=== PATIENT | female | born 2000 | race African-American/Black ===

== ENCOUNTER 2022-01-15 19:16 | Outpatient (CLI) | payer SELFPAY ==
[~2022-01-15] VITALS: Ht 175.3 cm; Wt 104.5 kg
--- NOTE | 2022-01-15 19:20 | NUR ---
1920- PT PRESENTS TO [facility] AMBULATORY COMPLAINING OF VAGINAL PAIN AND CRAMPING. TO ROOM LR4, CHANGED INTO GOWN. 193- HEART TONES DOPPLERED AT 150 WITH LOTS OF MOVEMENT NOTED. VSS. PLAN OF CARE DISCUSSED WITH PT. SHE COMPLAINS OF VAGINAL PAIN THAT HAS BEEN CONSTANT FOR MOST OF THE DAY AND SOME CRAMPIING. DENIES LEAKING FLUID OR VAGINAL BLEEDING. PT IS FEELING MOVEMENT. PT HAS NOT HAD ANY CARE AND HAS RECENTLY MOVED HERE FROM [place]. 1939- ROLES UPDATED ON PT HISTORY AND PRESENTING COMPLAINT. ORDERS RECEIVED FOR LABS, UA, AND UDS. WILL CALL WITH RESULTS.
[2022-01-15 19:35] VITALS: BP 128/72; PULSE 95; TEMP 98.5
[2022-01-15 20:20] LABS: BASO % 0.3 % (0.0-2.0); EOS # 0.1 K/mm3 (0.0-0.7); EOS % 1.2 % (0.0-4.0); GRAN # 6.2 K/mm3 (1.4-6.5); GRAN % 67.1 % (42.2-75.2); HEMATOCRIT 33.8 % (37.0-47.0); HEMOGLOBIN 11.5 g/dl (12.5-16.0); LYMPH # 2.3 K/mm3 (1.2-3.4); LYMPH % 24.5 % (20.0-51.0); MEAN CELL VOLUME 91 fl (80.0-100.0); MEAN CORPUSCULAR HEMOGLOBIN 31 pg (27-31); MEAN CORPUSCULAR HGB CONC 34 g/dl (33.0-37.0); MEAN PLATELET VOLUME 9.7 fl (7.4-10.4); MONO # 0.6 K/mm3 (0.1-0.6); MONO % 6.5 % (1.7-9.3); PLATELET COUNT 233 K/mm3 (130-400); RED BLOOD COUNT 3.71 M/mm3 (4.10-5.30); REDCELL DISTRIBUTION WIDTH-CV 12.7 % (11.5-14.5)
[2022-01-15 20:44] LABS: COLLECTION METHOD CLEAN CATCH
[2022-01-15 20:53] LABS: MUCOUS Present (NOT PRESENT); PH 6 (5-8); SQUAMOUS EPITHELIAL 20-50 /hpf (0-10); URINE APPEARANCE Cloudy (CLEAR/HAZY); URINE BACTERIA None Seen /hpf (NONE SEEN); URINE BILIRUBIN Negative (NEGATIVE); URINE BLOOD Negative (NEGATIVE); URINE COLOR Yellow (YELLOW); URINE GLUCOSE Negative (NEGATIVE); URINE KETONE Negative (NEGATIVE); URINE LEUKOCYTE ESTERASE 3+ (NEGATIVE); URINE NITRATE Negative (NEGATIVE); URINE PROTEIN(semi-quant) 1+ (NEGATIVE); URINE UROBILINOGEN Negative (NEGATIVE)
--- NOTE | 2022-01-15 21:00 | NUR ---
2099- NURSING ADMISSION HISTORY AND ASSESSMENT COMPLETE. 2119- DR NOTIFIED CHARTED, ORDERS RECEIVED. PT UPDATED ON PLAN OF CARE AND LAB RESULTS.
[2022-01-15 21:12] LABS: HIV 1/2 Antibodies Non-Reactive; HIV-1p24 Antigen Non-Reactive
[2022-01-15 21:12] LABS: TRICYCLIC ANTIDEPRESS URINE NEGATIVE
[2022-01-15] MEDS ORDERED: PRENA1 CHEW1 CT1 PO (21:13)
--- NOTE | 2022-01-15 21:42 | NUR ---
2141- MACROBID GIVEN ORDERED. PT EATING SOME CRACKERS WELL. 2199- DISCHARGE INSTRUCTIONS GIVEN AND PT VERBALIZES UNDERSTANDING. DISCUSSED PRESCRIPTION HAS BEEN CALLED INTO [facility] AND PT NEEDS TO PICK IT UP AND TAKE THE FULL DOSES. 2212- PT DISMISSED TO HOME ACCOMPANIED BY BOYFRIEND AND TODDLER.
[2022-01-15 22:00] VITALS: BP 117/68; PULSE 92
[2022-01-16 18:54] LABS: HEPATITIS B SURFACE ANTIGEN Negative (Negative)
== END 2022-01-15 22:13 | disposition home or self-care (01) ==
LOC: LDR 19:16 → LDRO 19:16 → LDR 19:20 → LDRO 22:13
PROVIDERS: Obstetrics & Gynecology
DX: O26.899 Other specified pregnancy related conditions, unspecified trimester (principal); R10.2 Pelvic and perineal pain; Z3A.00 Weeks of gestation of pregnancy not specified
CPT/HCPCS: OP

== ENCOUNTER 2022-04-23 11:02 | Inpatient (IN) | payer MEDICAID ==
[2022-04-23] VITALS (41 sets, daily range): BP systolic 111–154; BP diastolic 63–98; PULSE 82–114; TEMP 97.2–98
[~2022-04-23] VITALS: Ht 175.3 cm; Wt 120.5 kg
[~2022-04-23 11:02] MED LIST: PRENA1 CHEW1 CT1 PO
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
--- NOTE | 2022-04-23 11:30 | NUR ---
Pit start @ 2mU/min after noting Category I monitor strip.
[2022-04-23 12:16] LABS: BASO % 0.3 % (0.0-2.0); EOS # 0.1 K/mm3 (0.0-0.7); EOS % 0.8 % (0.0-4.0); GRAN % 69.9 % (42.2-75.2); HEMOGLOBIN 11.6 g/dl (12.5-16.0); LYMPH # 1.6 K/mm3 (1.2-3.4); LYMPH % 22.6 % (20.0-51.0); MEAN CELL VOLUME 92 fl (80.0-100.0); MEAN CORPUSCULAR HEMOGLOBIN 31 pg (27-31); MEAN CORPUSCULAR HGB CONC 34 g/dl (33.0-37.0); MONO # 0.4 K/mm3 (0.1-0.6); PLATELET COUNT 269 K/mm3 (130-400); RED BLOOD COUNT 3.77 M/mm3 (4.10-5.30); REDCELL DISTRIBUTION WIDTH-CV 12.6 % (11.5-14.5)
[2022-04-23 12:23] LABS: TRICYCLIC ANTIDEPRESS URINE NEGATIVE
--- NOTE | 2022-04-23 12:30 | NUR ---
Patient informed plans to come break water in 45 minutes or so. Patient agreeable to plan of care. Denies any questions or concerns.
[2022-04-23 12:37] LABS: HEMATOCRIT 34.5 % (37.0-47.0)
--- NOTE | 2022-04-23 13:20 | NUR ---
here. AROM @ 1323, clear fluid noted. SVE /-2 per his exam. Reports cervix now anterior, soft.
--- NOTE | 2022-04-23 14:48 | NUR ---
Requests epidural. Sudeep Patel CRNA, notified of patient request. LR bolus begun.
--- NOTE | 2022-04-23 15:15 | NUR ---
NOHEMI Esteves, here for epidural placement. Time-out completed prior to procedure. 1517: Local anesthetic admininstered by BATH DESIGN SALES CONSULTANT. 1521: Single shot dose administered by BATH DESIGN SALES CONSULTANT. No adverse reactions noted. Tolerates procedure well.
--- NOTE | 2022-04-23 15:45 | NUR ---
Patient notified of positive drug screen for cannabis, and per protocol will collect portion of umbilical cord for analysis, as well as obtain urine sample on . Verbalizes understanding.
--- NOTE | 2022-04-23 16:05 | NUR ---
Parsons catheter placed @ this time in sterile fashion, followed by repeat SVE. Repositioned to right lateral with left leg in stirrup.
--- NOTE | 2022-04-23 16:10 | NUR ---
BP cuff changed to left arm at this time, as noted elevated reading while cuff on right arm with patient in right lateral.
--- NOTE | 2022-04-23 16:42 | NUR ---
here for exam. SVE /-2, gives verbal order to increase pitocin up to 30mU/min.
--- NOTE | 2022-04-23 16:45 | NUR ---
places FSE @ this time.
--- NOTE | 2022-04-23 16:49 | NUR ---
Patient nauseated, emesis of 100mL noted. Fan on, cool washcloth applied. Will administer Zofran.
--- NOTE | 2022-04-23 17:25 | NUR ---
Repositioned to left lateral with right leg in stirrup.
--- NOTE | 2022-04-23 17:49 | NUR ---
Repositioned to sitting upright.
--- NOTE | 2022-04-23 18:23 | NUR ---
Report to ANGELIA Pinon, who will resume care from this point forward.
--- NOTE | 2022-04-23 19:47 | NUR ---
@194 DR. ELLER WAS NOTIFIED REGARDING PT SVE /-2, BLOOD PRESSURE CONCERNS 145/82, 141/84 AND 154/84. SAID WE CAN WATCH B/P AND IF THE B/P GETS INTO THE 160'S GIVE HIM A CALL.
--- NOTE | 2022-04-23 20:38 | NUR ---
@2027 SVE10/100/+3 DR. ELLER NOTIFIED AND STATES "I'M ON MY WAY'.
--- NOTE | 2022-04-23 22:13 | NUR ---
@[address] ELLER OF PT SVE /+3 AND THAT HE IS NEEDED AT THE BEDSIDE FOR DELIVERY. @2038 MD ARRIVED FOR DELIVERY @2043 BABY BOY DELIVERED. @2048 PLACENTA DELIVERED. PITOCIN BOLUSED AFTER PITOCIN AT 333MU/ML CORD SEGMENT COLLECTED AND SENT TO LAB. PLACENTA COLLECTED AND SENT TO LAB. CORD BLOOD COLLECTED AND SENT TO LAB.
--- NOTE | 2022-04-23 23:09 | NUR ---
PATIENT TRANSPORTED TO VIA WHEELCHAIR ALONG WITH SPOUSE. PATIENT UNDERSTAND SHE HAS A HAT IN THE TOLIET TO VOID. PATIENT ORIENTED TO THE UNIT, CALL HYDE LIGHT WITHIN REACH, BED POSITIONED LOW WITH WHEELS LOCKED.
[2022-04-24] VITALS (9 sets, daily range): BP systolic 118–152; BP diastolic 56–110; PULSE 68–95; TEMP 97.6–98
--- NOTE | 2022-04-24 05:35 | NUR ---
PT AND SPOUSE IN THE NURSERY VISITING THE BABY.
--- NOTE | 2022-04-24 06:14 | NUR ---
REPORT GIVEN TO ANGELIA OMALLEY.
--- NOTE | 2022-04-24 14:50 | NUR ---
Harness Installer met with patient in response to consult for positive urine drug screen for cannabinoids. Patient and father of baby, Juanito (ph#[phone]) are agreeable to answer assessment questions. Patient and Juanito live in [place] with their other child, who is age 2 and at daycare at the time of assessment. Patient reports she is from [place], so her family is all out of state however reports Juanito's family is local and supportive. Patient reports she has supplies needed for baby, however only has a pack n play and would like to have SW assistance locating either a bassinet or crib attachment so she doesn't have to bend so far over each time. Patient is agreeable to let SW contact [employer] for assistance with this. Patient states she is signed up with [facility] and called them today to notify them of baby's . Patient is interested in maternal and baby services through the [facility] Department and give SW permission to share her information with [facility] and give referral. Patient states daycare is arranged for both of her children and she plans to try to secure employment after she recovers. Patient denied any mental health concerns and feels she did better during this than her previous one. SW addressed positive UDS and patient stated she last used a couple months ago and plans to bottle feed. Patient reports she found out she was at about four months along and tried to quit, but it made her sick. Patient states her OB is aware of this. RUSSELL provided [facility] Resource Guide, then collaborated with Dr. Dubose about the above information. Dr. Dubose advised patient and baby may need more invasive work up due to patient having an STD during . RUSSELL attempted to contact Chelita at [employer] and Nancy at [facility] and left detailed messages for them both.
--- NOTE | 2022-04-24 17:00 | NUR ---
Dr. Lemons at nurses station and updated that patient blood pressures continue to increase. BP-143/106 and thirty minutes later 152/110. Patient has left unit a few times today and when asked if she is smoking or using anything when she leaves she states "no". Dr. Lemons updated and orders to take another blood pressure 1744 and update if continue to be elevated.
--- NOTE | 2022-04-24 19:34 | NUR ---
@1810 RN AT THE BEDSIDE FOR REPORT. PT [id number] WITH NO APPARENT SIGN OF DISTRESS. PATIENT DENIES HEACHACHES, DIZZINESS AND OR BLURRY VISION.
--- NOTE | 2022-04-24 21:50 | NUR ---
Pt. observed walking off the unit with spouse and two year old transporting their two year old to a relative.
--- NOTE | 2022-04-24 23:10 | NUR ---
Patient observe arriving back to the unit with spouse and with no apparent sign of distress.
--- NOTE | 2022-04-25 00:16 | NUR ---
Patient observed bottle feeding .
[2022-04-25 04:29] VITALS: BP 126/84; PULSE 80; TEMP 97.6
[2022-04-25 08:36] VITALS: BP 143/94; PULSE 86; TEMP 97.4
--- NOTE | 2022-04-25 08:37 | NUR ---
Manufacturing Storeperson spoke with Nancy at the [facility] who will reach out to patient to enroll her in services.
[2022-04-25] MEDS ORDERED: IBU600 MG PO (08:39)
--- NOTE | 2022-04-25 11:02 | NUR ---
Cloth Doffer spoke with Chelita, Cloth Doffer at [facility] who advised patient is one of her clients and she will work with patient to secure a bassinet.
--- NOTE | 2022-05-08 09:43 | NUR ---
Patient's 's cord blood was positive for cannibinoids and social media content manager filed a CPS report # [id number]. Worker called Travis James with DCF and confirmed that DCF does not have an open case as previous report. Worker consulted with Dr Delgado, who reports that infant was a no show for first exam on 05/05/22 and a no show for rescheduled exam on 05/07/22. Infant has critical lab value and needs to have blood drawn. This information was also stated in latest CPS report.
--- NOTE | 2022-05-15 14:06 | NUR ---
On 05/14/22, social security assessor spoke with DCF and confirmed that they have an open case and that Elvia Pennylouise #[phone] has been assigned to the case. Worker notified physician of the above information.
== END 2022-04-25 11:37 | disposition home or self-care (01) | DRG 806 ==
LOC: LDR 11:02 → OB 11:02 → EDBD 11:02 → LDR 19:08 → OB 22:50
PROVIDERS: ADMIT Obstetrics & Gynecology
PROC: 10E0XZZ Delivery of Products of Conception, External Approach (ICD-10-PCS; principal; 2022-04-23)
PROC: 10907ZC Drainage of Amniotic Fluid, Therapeutic from Products of Conception, Via Natural or Artificial Opening (ICD-10-PCS; 2022-04-23)
PROC: 0UQMXZZ Repair Vulva, External Approach (ICD-10-PCS; 2022-04-23)
DX: O36.5930 Maternal care for other known or suspected poor fetal growth, third trimester, not applicable or unspecified (principal); O99.324 Drug use complicating childbirth; Z37.0 Single live birth; Z3A.37 37 weeks gestation of pregnancy; O99.02 Anemia complicating childbirth; D64.9 Anemia, unspecified; O99.214 Obesity complicating childbirth; E66.9 Obesity, unspecified; O99.344 Other mental disorders complicating childbirth; F41.9 Anxiety disorder, unspecified; F12.90 Cannabis use, unspecified, uncomplicated; O69.3XX0 Labor and delivery complicated by short cord, not applicable or unspecified; Z88.8 Allergy status to other drugs, medicaments and biological substances; O71.82 Other specified trauma to perineum and vulva
CPT/HCPCS: J2405; J2590; J2795; J7120

== ENCOUNTER 2023-10-29 15:07 | Emergency (ER) | payer MEDICAID ==
[~2023-10-29] VITALS: Ht 175.3 cm; Wt 118.2 kg
[~2023-10-29 15:07] MED LIST changes: +IBU600 MG PO; +REGLAN 10MG10 MG/TAB PO
[2023-10-29 15:25] VITALS: TEMP 98.5
[2023-10-29] MEDS ORDERED: NS 1,000 ML IV ONE (15:45)
[2023-10-29 15:59] LABS: BASO % 0.6 % (0.0-2.0); EOS # 0.2 K/mm3 (0.0-0.7); EOS % 2.2 % (0.0-4.0); GRAN # 3.5 K/mm3 (1.4-6.5); GRAN % 50.9 % (42.2-75.2); HEMOGLOBIN 12.3 g/dl (12.5-16.0); LYMPH # 2.6 K/mm3 (1.2-3.4); LYMPH % 38.2 % (20.0-51.0); MEAN CELL VOLUME 88 fl (80.0-100.0); MEAN CORPUSCULAR HEMOGLOBIN 30 pg (27-31); MEAN CORPUSCULAR HGB CONC 34 g/dl (33.0-37.0); MEAN PLATELET VOLUME 9.2 fl (7.4-10.4); MONO # 0.6 K/mm3 (0.1-0.6); PLATELET COUNT 310 K/mm3 (130-400); RED BLOOD COUNT 4.14 M/mm3 (4.10-5.30)
[2023-10-29 16:07] LABS: HEMATOCRIT 36.4 % (37.0-47.0)
[2023-10-29 16:16] LABS: ALBUMIN 3.7 gm/dL (3.5-5.0); BILIRUBIN,TOTAL 0.3 mg/dL (0.2-1.2); C-REACTIVE PROTEIN 3.06 mg/dL (0.00-0.50); CALCIUM 9.6 mg/dL (8.4-10.2); CREATININE, serum 0.65 mg/dL (0.57-1.11); POTASSIUM 3.8 mmol/L (3.5-4.5); TOTAL PROTEIN 7.2 gm/dL (6.2-8.1)
[2023-10-29] MEDS ORDERED: Acetaminophen 500 MG TAB PO ONE (17:15)
[2023-10-29] MEDS ORDERED: Home HYDROcodone/Acetaminophen 5/325 MG #4 TABS/PACK PO ONE (18:00)
[2023-10-29 19:05] VITALS: BP 120/86; PULSE 78
== END 2023-10-29 19:05 | disposition home or self-care (01) ==
LOC: COL.ER 15:07
PROVIDERS: Emergency Medicine
DX: O03.9 Complete or unspecified spontaneous abortion without complication (principal); Z88.6 Allergy status to analgesic agent
CPT/HCPCS: J7030